=== PATIENT | female | born 1960 | race Caucasian/White ===

== ENCOUNTER 2020-03-23 06:02 | Day surgery (SDC) | payer OTHER, SELFPAY ==
--- NOTE | 2020-03-21 09:19 | EKG12_ITS ---
Test Reason : PRE OP Blood Pressure : / mmHG Vent. Rate : 072 BPM Atrial Rate : 072 BPM P-R Int : 152 ms QRS Dur : 078 ms QT Int : 388 ms P-R-T Axes : 052 -04 020 degrees QTc Int : 424 ms Normal sinus rhythm Normal ECG Confirmed by BENJA DICKENS, NGA ([id number]), department editor АННА CROWLEY ([id number]) on 03/22/2020 11:11:31 AM Referred By: Sergio Ireland Confirmed By:NGA YOUSIF MD
[2020-03-21 09:53] LABS: Absolute Lymphocyte Count 2.41 X10^3/uL (0.83-4.51); Absolute Neutrophil Count 2.7 X10^3/uL (2.0-7.7); Basophil# 0.04 X10^3/uL; Basophil% 0.7 % (0-1); Eosinophil# 0.35 X10^3/uL; Eosinophils% 5.7 % (0-5); Hematocrit 44.2 % (37-47); Hemoglobin 14.2 g/dL (12.0-15.0); Lymphocyte # 2.41 X10^3/ul (4.0); Lymphocyte % 39.5 % (19-41); Mean Corp Hgb Conc 32.1 g/dL (32-36); Mean Corpuscular Hgb 30.3 pg (27.0-32.0); Mean Corpuscular Volume 94.2 fL (81-99); Mean Platelet Vol. 10.7 fl (6.2-12.0); Monocyte# 0.59 X10^3/uL; Monocyte% 9.7 % (0-10); NRBC Flagged by Analyzer 0 % (0-5); Neutrophil # 2.69 X10^3/uL (2.7-7.7); Neutrophil % 44.1 % (47-70); Platelet Count 238 K/mm3 (150-450); RBC Distribution Width CV 12.6 % (11.6-14.6); RBC Distribution Width SD 43.6 fl (35.1-43.9); Red Blood Count 4.69 M/mm3 (4.2-5.4); White Blood Count 6.1 K/mm3 (4.4-11.0)
[2020-03-21 10:15] LABS: Anion Gap 4 (5-15); BUN 16 mg/dL (7-18); Chloride 108 mmol/L (98-107); Creatinine, Serum 0.84 mg/dL (0.55-1.02); EST Glomerular Filtration Rate 73 mL/min (>60); Est Glom Filt Rate - Afr Amer 89 mL/min (>60); Glucose 102 mg/dL (74-106); Sodium Level 142 mmol/L (136-145)
[2020-03-23] VITALS (11 sets, daily range): BP systolic 134–175; BP diastolic 76–92; PULSE 63–78; RESP 14–16; TEMP 35.8–36.6; O2SAT 87–99; BMI 35.3
[2020-03-23] MEDS: Lactated Ringers 1,000 ML 100 ML IV ×2 (06:59→11:06)
--- NOTE | 2020-03-23 07:30 | CYST_PTH ---
PATIENT: JULEE TIWARI [place] [facility] [id number] AGE/SX: 59/F ROOM: RE03/23/[address]: Dr. 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 Surface of vocal cord cyst: Fragment of benign squamous mucosa consistent with benign cyst. B. Cyst contents: A mucoid fragment (gross), did not survive processing. IVÁN:haylee 03/24/20 MICROSCOPIC DESCRIPTION Slides are reviewed. GROSS DESCRIPTION A - Received in fixative is one container labeled with the patient's name and designated surface of vocal cord cyst. The specimen consists of one irregular fragment of silva-pink soft tissue measuring 0.1 cm in greatest dimension. The specimen is totally submitted in one cassette. B - Received in fixative is one container labeled with the patient's name and designated cyst contents. The specimen consists of one irregular mucoid fragment measuring 0.1 cm in greatest dimension. The specimen is totally submitted in one cassette. / IVÁN:haylee 03/23/20 TC:5 CPT: 77398 x2
--- NOTE | 2020-03-23 07:35 | DCINST_ITS ---
You will use the following diet at home:: Regular Discharge Activity: Return to Normal Activity, - - No talking for 3 days. Then arms length talking for 1 week. Allergies/Adverse Reactions: Allergies No Known Allergies Allergy (Verified 03/15/20 10:31) Medications to take at Discharge NK 03/15/20 Primary Care Physician: Care Physician,No Primary [Primary Care Provider] - Test Results: Test results from this visit will be discussed in further detail at your follow- up appointment, if applicable.
[2020-03-23] MEDS: Epinephrine (1 mg/ml) 1 MG/ML VIAL (08:00)
--- NOTE | 2020-03-23 08:45 | PCM.OPRPT ---
Report of Operation Date of Procedure: 03/23/20 Pre-Operative Diagnosis: left vocal cord mass Post-Operative Diagnosis: same Surgery/Procedure Performed:: Microdirect laryngoscopy with excision of vocal cord mass Description of Surgical Findings:: cystic mass left mid cord Type of Anesthesia:: General Anesthesiologist: Girma Medellin Specimen's removed: vocal cord mass Estimated Blood Loss (mL): minimal Description of Procedure: The patient was taken to the operating room on 03/23/20. She was placed in supine position on the operating table. She was given sufficient general endotracheal anesthesia. She needed to be intubated with a Glidoscope as her airway was quite difficult and very anterior. The table was turned 90 degrees in clockwise fashion. The patient was draped sterilely. A gum guard was placed on the upper dentition. A Jako laryngoscope was inserted into the patient's mouth and then into the oropharynx atraumatically. Her airway was indeed quite anterior and I had difficulty exposing the larynx because of the anterior position. Nonetheless, eventually I was able to expose the cyst. She was then placed in Lewy suspension and suspended on a Hughes stand. Next I made an incision on the superior surface of the left vocal cord overlying the mass. I then just dissected down through the mucosa and came up on cyst contents. These were removed with cup forceps and sent as a separate specimen. Next I excised the mucosa overlying the cyst. This was sent for as a separate specimen. Hemostasis achieved with adrenaline pledgets. These were then removed. As I was removing laryngoscope there was blood in the right lateral pharynx. This was suctioned away. There was hematoma of the right lateral pharynx. This region was explored with the laryngoscope before removal, no other abnormalities were seen. All of the instrumentation was then removed. The patient was then awoken and brought to recovery room stable condition blood loss minimal replacement none. Sponge, needle and instrument count were correct at the end of procedure.
== END 2020-03-23 12:30 | disposition home or self-care (01) ==
LOC: SDC 06:03 → AC 06:04
PROVIDERS: Anesthesiology; Referring Provider Otolaryngology; Visit Provider Otolaryngology
PROC: 0CJS8ZZ Inspection of Larynx, Via Natural or Artificial Opening Endoscopic (ICD-10-PCS; CPT 31575; principal; 2020-03-23 07:25)
DX: R49.0 Dysphonia (principal); D38.0 Neoplasm of uncertain behavior of larynx
CPT/HCPCS: 00320; 31540; 36415; 80048; 85025; 87635; 88304; 88305; 93005; C9803; J7120; J2405; U0003

== ENCOUNTER → 2020-08-03 09:49 | Outpatient (CLI) | payer OTHER, SELFPAY ==
[2020-03-23 06:45] VITALS: BMI 35.3
[2020-08-07 14:07] LABS: Age Gdln ACOG Testing 30-65 (.)
[2020-08-07 15:40] LABS: HPV APTIMA, High Risk Negative (Negative); HPV Reflexed? YES, CHARGE PATIENT
== END ==
PROVIDERS: PCP Family Medicine; Visit Provider Family Medicine
DX: Z12.4 Encounter for screening for malignant neoplasm of cervix (principal); Z01.419 Encounter for gynecological examination (general) (routine) without abnormal findings
CPT/HCPCS: 87624; 88175; G0145

== ENCOUNTER → 2020-08-04 09:55 | Outpatient (CLI) | payer OTHER, SELFPAY ==
[2020-03-23 06:45] VITALS: BMI 35.3
--- NOTE | 2020-08-04 09:57 | BI_ITS ---
MAMMOGRAPHY - BILATERAL SCREENING REASON FOR EXAM: Female, 59 years old. Routine annual screening examination. PERTINENT HISTORY: Non-contributory. TECHNIQUE: Digital bilateral breast tesha (3D mammographic acquisition) in the CC and MLO projections. 2-D mediolateral oblique (MLO) and craniocaudad (CC) views of both breasts were obtained. CAD: Full Field Digital Mammography with Computer Added Detection was performed. COMPARISON: Comparison is made with prior outside examination dated 01/14/2006. FINDINGS: Breast Composition: There are scattered areas of fibroglandular density. There are no dominant masses or suspicious calcifications. Benign appearing bilateral axillary lymph nodes. No other significant abnormalities are identified. BI/SCRN MAMM (CAD)W/TESHA BILAT IMPRESSION: Stable bilateral screening mammogram. Yearly follow-up mammogram recommended. (A) ASSESSMENT CATEGORY: BIRADS Category 2: Benign. A letter regarding these results will be sent to the patient by the facility within 30 days. Approximately 10% of breast cancers are not detected by mammography. A normal mammogram should not delay biopsy of a clinically suspicious abnormality. [id number] Electronically Signed: Misael Weaver MD at 11:27 EST , Service support ,
== END ==
PROVIDERS: PCP Family Medicine; Referring Provider Family Medicine; Visit Provider Family Medicine
DX: Z12.31 Encounter for screening mammogram for malignant neoplasm of breast (principal)
CPT/HCPCS: 77063; 77067

== ENCOUNTER → 2024-05-19 | Outpatient (CLI) | payer OTHER, SELFPAY ==
--- NOTE | 2024-05-19 10:09 | BI_ITS ---
MAMMOGRAPHY - BILATERAL SCREENING REASON FOR EXAM: Female, 63 years old. Routine annual screening examination. PERTINENT HISTORY: Non-contributory. TECHNIQUE: Digital bilateral breast tesha (3D mammographic acquisition) in the CC and MLO projections. 2-D mediolateral oblique (MLO) and craniocaudad (CC) views of both breasts were obtained. CAD: Full Field Digital Mammography with Computer Added Detection was performed. COMPARISON: Comparison is made with prior study dated August 04, 2020. FINDINGS: Breast Composition: There are scattered areas of fibroglandular density. There is a 4.1 mm x 1.2 cm nodule in the deep central medial aspect of the right breast. The patient will be recalled for additional views including magnification spot views and 90 degree lateral views. No other significant abnormalities are identified. BI/SCRN MAMM (CAD)W/TESHA BILAT IMPRESSION: Possible 4.1 mm x 1.2 cm nodule in the deep central medial aspect of the right breast as described. The patient will be recalled for additional views including 90 degree lateral and compression spot views. ASSESSMENT CATEGORY: BIRADS Category 0: Incomplete. Need additional imaging evaluation. A letter regarding these results will be sent to the patient by the facility within 30 days. Approximately 10% of breast cancers are not detected by mammography. A normal mammogram should not delay biopsy of a clinically suspicious abnormality. [id number] Electronically Signed: Misael Weaver MD at 11:03 EST ,
== END | disposition home or self-care (01) ==
LOC: OPBI 10:07
PROVIDERS: PCP Family Medicine; Referring Provider Family Medicine; Visit Provider Family Medicine
DX: Z12.31 Encounter for screening mammogram for malignant neoplasm of breast (principal)
CPT/HCPCS: 77063; 77067

== ENCOUNTER → 2024-05-25 | Outpatient (CLI) | payer OTHER, SELFPAY ==
[2024-05-25 12:14] LABS: Absolute Lymphocyte Count 1.81 X10^3/uL (0.83-4.51); Absolute Neutrophil Count 3.4 X10^3/uL (2.0-7.7); Basophil# 0.05 X10^3/uL; Basophil% 0.8 % (0-1); Eosinophil# 0.19 X10^3/uL; Eosinophils% 3.2 % (0-5); Hematocrit 44.8 % (37-47); Hemoglobin 14.1 g/dL (12.0-15.0); Lymphocyte # 1.81 X10^3/ul (0.83-4.51); Lymphocyte % 30.5 % (19-41); Mean Corp Hgb Conc 31.5 g/dL (32-36); Mean Corpuscular Hgb 29.6 pg (27.0-32.0); Mean Corpuscular Volume 94.1 fL (81-99); Mean Platelet Vol. 10.5 fl (6.2-12.0); Monocyte# 0.49 X10^3/uL; Monocyte% 8.2 % (0-10); NRBC Flagged by Analyzer 0 % (0-5); Neutrophil # 3.37 X10^3/uL (2.7-7.7); Neutrophil % 56.8 % (47-70); Platelet Count 227 K/mm3 (150-450); RBC Distribution Width CV 12.7 % (11.6-14.6); RBC Distribution Width SD 43.8 fl (35.1-43.9); Red Blood Count 4.76 M/mm3 (4.2-5.4); White Blood Count 5.9 K/mm3 (4.4-11.0)
[2024-05-25 12:39] LABS: AST(SGOT) 17 U/L (15-37); Alanine Aminotransfer ALT/SGPT 39 U/L (13-56); Albumin, Serum 3.7 g/dL (3.2-5.0); Alkaline Phosphatase 63 U/L (45-117); Anion Gap 0 (5-15); BUN 17 mg/dL (7-18); Calcium,Total 9.2 mg/dL (8.5-10.1); Chloride 110 mmol/L (98-107); Creatinine, Serum 0.85 mg/dL (0.55-1.02); EST Glomerular Filtration Rate 72 mL/min (>60); Est Glom Filt Rate - Afr Amer 87 mL/min (>60); Globulin 3.6 g/dL (2.2-4.2); Glucose 114 mg/dL (74-106); Potassium 4.5 mmol/L (3.5-5.1); Protein, Total 7.3 g/dL (6.4-8.2); Sodium Level 140 mmol/L (136-145)
== END | disposition home or self-care (01) ==
LOC: BFHLAB 10:05
PROVIDERS: PCP Family Medicine; Referring Provider Family Medicine; Visit Provider Family Medicine
DX: I10 Essential (primary) hypertension (principal)
CPT/HCPCS: 36415; 80053; 85025

== ENCOUNTER → 2024-05-28 | Outpatient (CLI) | payer SELFPAY, OTHER ==
--- NOTE | 2024-05-28 09:21 | BI_ITS ---
MAMMOGRAPHY - UNILATERAL DIAGNOSTIC: RIGHT BREAST REASON FOR EXAM: Female, 63 years old. Abnormal screening mammogram. PERTINENT HISTORY: Non-contributory. TECHNIQUE: Compression spot views of the right breast were obtained in mediolateral oblique and craniocaudad projections. Any degree lateral was obtained as well. CAD: Full Field Digital Mammography with Computer Added Detection was performed. COMPARISON: Comparison is made with prior study dated May 19, 2024. FINDINGS: Breast Composition: There are scattered areas of fibroglandular density. Persistent 4.1 mm x 12 mm nodule in the deep central medial aspect of the right breast. Correlation with ultrasound is recommended. No other significant abnormalities are identified. BI/DIAG MAMM W/CAD, UNILAT IMPRESSION: 4.1 mm x 5 mm nodule in the deep central medial aspect of the right breast described. Correlation with ultrasound is recommended. ASSESSMENT CATEGORY: BIRADS Category 0: Incomplete. Need additional imaging evaluation. A letter regarding these results will be sent to the patient by the facility within 30 days. Approximately 10% of breast cancers are not detected by mammography. A normal mammogram should not delay biopsy of a clinically suspicious abnormality. Electronically Signed: Misael Weaver MD at 11:52 EST ,
--- NOTE | 2024-05-28 09:22 | US_ITS ---
STUDY: ULTRASOUND BREAST - RIGHT REASON FOR EXAM: Female, 63 years old. Right breast nodule. TECHNIQUE: Axial and longitudinal images of the RIGHT breast were performed with a high resolution ultrasound transducer. # OF IMAGES: 40 COMPARISON: Comparison is made with prior mammogram dated May 19, 2024 and prior mammogram done earlier today. FINDINGS: RIGHT Breast: The medial aspect of the right breast was examined with ultrasound. The mammographic abnormality corresponds to 1.2 cm x 0.8 cm x 0.4 cm cyst at the 2:00 position of the breast at 8 cm from the nipple. Incidental note is made of dilated ducts. US/Breast Limited Unilateral IMPRESSION: The mammographic abnormality corresponds to a 1.2 cm x 0.8 cm x 0.4 cm cyst at the 2:00 position of the breast at 8 cm from the nipple. ASSESSMENT CATEGORY: BIRADS Category 2: Benign. A letter regarding these results will be sent to the patient by the facility within 30 days. Electronically Signed: Misael Weaver MD at 11:54 EST ,
== END | disposition home or self-care (01) ==
PROVIDERS: PCP Family Medicine; Referring Provider Family Medicine; Visit Provider Family Medicine
DX: R92.8 Other abnormal and inconclusive findings on diagnostic imaging of breast (principal)
CPT/HCPCS: 76642; 77065

== ENCOUNTER → 2025-04-28 | Outpatient (CLI) | payer MEDICARE, OTHER, SELFPAY ==
[2025-04-28 12:02] LABS: Hematocrit 43.2 % (37-47); Hemoglobin 14.0 g/dL (12.0-15.0); Immature Granulocytes Count 0.010 X10^3/uL (0.0-0.0); Mean Corp Hgb Conc 32.4 g/dL (32-36); Mean Corpuscular Volume 93.9 fL (81-99); Mean Platelet Vol. 11.0 fl (6.2-12.0); NRBC Flagged by Analyzer 0 % (0-5); Platelet Count 211 K/mm3 (150-450); RBC Distribution Width CV 13.1 % (11.6-14.6); RBC Distribution Width SD 45.3 fl (35.1-43.9); Red Blood Count 4.60 M/mm3 (4.2-5.4); White Blood Count 5.4 K/mm3 (4.4-11.0)
[2025-04-28 13:38] LABS: AST(SGOT) 22 U/L (<=31); Alanine Aminotransfer ALT/SGPT 83 U/L (<=34); Albumin, Serum 4.2 g/dL (3.4-4.8); Alkaline Phosphatase 76 U/L (35-104); Anion Gap 10 (5-15); BUN 17 mg/dL (4-19); BUN/Creat Ratio 21.0 RATIO (10-20); Calcium,Total 9.4 mg/dL (7.6-11.0); Carbon Dioxide 25.6 mmol/L (21.0-32.0); Chloride 106 mmol/L (98-108); Globulin 2.6 g/dL (2.2-4.2); Glucose 89 mg/dL (70-99); Potassium 4.5 mmol/L (3.3-5.1)
[2025-04-28 14:03] LABS: Cholesterol 187 mg/dL (<=200); Low Density Lipoprotein Calc. 121 mg/dL; Triglycerides 78 mg/dL; Very Low Density Lipoprotein 16 mg/dL (5-40); cholesterol:hdl ratio screen 3.62
[2025-05-03 09:08] LABS: Age Gdln ACOG Testing 30-65 (.); HPV APTIMA, High Risk Negative (Negative)
== END | disposition home or self-care (01) ==
PROVIDERS: PCP Family Medicine; Referring Provider Family Medicine; Visit Provider Family Medicine
DX: I10 Essential (primary) hypertension (principal); R73.03 Prediabetes; Z12.4 Encounter for screening for malignant neoplasm of cervix
CPT/HCPCS: 36415; 80053; 80061; 83036; 85025; 88175; G0145

== ENCOUNTER → 2025-05-26 | Outpatient (CLI) | payer MEDICARE, OTHER, SELFPAY ==
--- NOTE | 2025-05-26 07:51 | BI_ITS ---
EXAM: SCRN MAMM (CAD)W/TESHA BILAT DATE: 05/26/2025 CLINICAL HISTORY: F, Age 64 y/o , SCREENING TECHNIQUE: Procedure Code: [id number] Modality: MG Procedure: SCRN MAMM (CAD)W/TESHA BILAT COMPARISON: Prior exam(s) dated May 19, 2024. FINDINGS: TISSUE DENSITY: There are scattered areas of fibroglandular density. Bilateral Breast Mammographic Findings: No significant masses, calcifications or other abnormalities are identified. The previously seen nodular density in the deep central slightly lateral aspect of the right breast is not seen at this time. BI/SCRN MAMM (CAD)W/TESHA BILAT IMPRESSION: Unremarkable bilateral screening mammogram. OVERALL FINAL ASSESSMENT BI-RADS 1: NEGATIVE. RECOMMENDATION: Routine annual follow-up in 1 Year Additional Recommendation none A letter with findings and recommendations will be mailed to the patient. Reading Location: [id number]
== END | disposition home or self-care (01) ==
LOC: OPBI 07:50
PROVIDERS: PCP Family Medicine; Referring Provider Family Medicine; Visit Provider Family Medicine
DX: Z12.31 Encounter for screening mammogram for malignant neoplasm of breast (principal)
CPT/HCPCS: 77063; 77067